=== PATIENT | female | born 1980 | race Caucasian/White ===

== ENCOUNTER 2020-03-06 16:44 | Emergency (ER) | payer BC, OTHER ==
[2020-03-06] MEDS ORDERED: KETOROLAC 30 MG/ML INJ ONE (18:34)
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
[2020-03-06 19:18] LABS: Urine Blood NEGATIVE (NEG); Urine Glucose NEGATIVE (NEG); Urine Protein NEGATIVE (NEG); Urine Specific Gravity 1.015 (1.005-1.030); Urine pH 5.5 (5.0-7.0)
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
[2020-03-06 20:02] VITALS: BP 118/82; TEMP 98.4; O2SAT 98
== END 2020-03-06 19:47 | disposition home or self-care (01) ==
LOC: ER 16:44
DX: S16.1XXA Strain of muscle, fascia and tendon at neck level, initial encounter (principal); V49.40XA Driver injured in collision with unspecified motor vehicles in traffic accident, initial encounter; Z91.018 Allergy to other foods
CPT/HCPCS: 70450; 72125; 72128; 72131; 81003; 81025; 96372; 99284